=== PATIENT | female | born 1965 | race Caucasian/White ===

== ENCOUNTER → 2016-07-19 | Outpatient (CLI) | payer BC | LOC: FIMAGING 14:01 | PROVIDERS: ATTEND Obstetrics & Gynecology | DX: D25.9 Leiomyoma of uterus, unspecified (principal); N84.0 Polyp of corpus uteri ==

== ENCOUNTER 2016-08-24 07:37 | Day surgery (SDC) | payer BC ==
[2016-08-24] MEDS ORDERED: LIDOCAINE 1% 2 ML INJ ONE (08:07)
[2016-08-24] MEDS ORDERED: LIDOCAINE 1% 5 ML SDV ID PRN (08:10)
[2016-08-24] MEDS ORDERED: LR 1,000 ML IV ONE (08:10)
[2016-08-24] MEDS ORDERED: PROPOFOL/EMULSION 500 MG/50 ML BOTTLE IV ONE (08:25)
[2016-08-24] MEDS ORDERED: fentaNYL 100 MCG/2 ML INJ ONE (08:25)
[2016-08-24] MEDS ORDERED: LIDOCAINE 1% 300 MG/30 ML SDV ONE (08:27)
[2016-08-24] MEDS ORDERED: MIDAZOLAM 2 MG/2 ML VIAL ONE (08:31)
[2016-08-24] MEDS ORDERED: HYDROCODONE/APAP 5/325 TAB PO PRN (09:47)
[2016-08-24] MEDS ORDERED: LR 1,000 ML IV SCH (10:00)
[2016-08-24] MEDS ORDERED: OXYCODONE/APAP 5/325 TAB ONE (10:26)
--- NOTE | 2016-08-24 12:09 | GOP ---
[f rep st] OPERATIVE REPORT DATE OF OPERATION: 08/24/2016 SURGEON: Beth Low MD ANESTHESIA: IV general. ANESTHESIOLOGIST: Blair Boyer MD PREOPERATIVE DIAGNOSIS: 1. Abnormal uterine bleeding. 2. Endometrial polyp. POSTOPERATIVE DIAGNOSIS: 1. Abnormal uterine bleeding. 2. Endometrial polyp. PROCEDURE PERFORMED: 1. Diagnostic hysteroscopy. 2. Hysteroscopic polypectomy. FINDINGS: Intrauterine cavity notable for a large polyp in the posterior lower uterine segment that was completely resected. Otherwise, the cavity was completely normal with bilateral ostia visualized. ESTIMATED BLOOD LOSS: Minimal. INDICATIONS: Patient is a 51-year-old, G 1, P 0-0-0-1, with a year long history of abnormal uterine bleeding. The biopsy in the office was performed and showed normal cells. A pelvic ultrasound was performed and showed a 1.1 cm endometrial polyp. It was recommended to proceed with removal of the polyp under hysteroscopy. We reviewed the risks and benefits, and she agreed with the plan. DESCRIPTION OF PROCEDURE: Patient was brought to the operating room. A time- out was performed with all parties present and in agreement of the patient and procedure. The anesthetic was initiated. She was prepped and draped in a normal sterile fashion in the dorsal lithotomy position with Cihno stirrups. A final time-out was performed. The speculum was placed. A paracervical block with 10 mL of 1% lidocaine was given. The cervix was easily sequentially dilated to 6 mm. The 5 mm hysteroscope was introduced, and the above findings were noted. The 5 mm Truclear polyp blade was introduced and was used to completely resect the polyp. Hemostasis was noted at this time. All hysteroscope was then removed. A sharp curettage was then performed with scant return of tissues. The tenaculum was then removed and silver nitrate was used to gain hemostasis at the right-sided tenaculum site. All instruments were removed at this time. At this time, the patient was awakened and brought to the recovery room in good condition. She tolerated the procedure well. Counts were correct x2. FLUID DEFICIT: 330 mL. FLUIDS REPLACED: IV fluids 900 mL. COMPLICATIONS: None. OUTCOME: Stable to PACU. /[id number]/MODL MTDD
== END 2016-08-24 10:55 | disposition home or self-care (01) ==
LOC: FSGY 07:37
PROVIDERS: ATTEND Obstetrics & Gynecology
PROC: 0UDB8ZX Extraction of Endometrium, Via Natural or Artificial Opening Endoscopic, Diagnostic (ICD-10-PCS; principal; 2016-08-24 09:15)
DX: N84.0 Polyp of corpus uteri (principal); N93.9 Abnormal uterine and vaginal bleeding, unspecified; E03.9 Hypothyroidism, unspecified
CPT/HCPCS: 58558; C1782; J2250; J2704; J3010

== ENCOUNTER → 2017-03-06 | Outpatient (CLI) | payer BC ==
[~2017-03-06] MED LIST: GADOBUTROL 10 ML VIAL IVP ONE
== END ==
LOC: FIMAGING 07:58
PROVIDERS: ATTEND Psychiatry & Neurology Neurology
DX: D35.2 Benign neoplasm of pituitary gland (principal); G43.709 Chronic migraine without aura, not intractable, without status migrainosus
CPT/HCPCS: A9585